=== PATIENT | female | born 1950 | race Caucasian/White ===

== ENCOUNTER → 2020-08-30 15:54 | Outpatient (CLI) | payer OTHER, SELFPAY ==
--- NOTE | 2020-08-30 15:58 | DI.MRI.S_ITS ---
BREAST MRI OF BOTH BREASTS- WITH CAD: 08/30/2020 CLINICAL: Breast MRI. No prior exams were available for comparison. Informed consent was obtained from the patient. 20 cc of gadolinium contrast was injected. Axial T1, T2, sagittal T1, and pre and post contrast T1 images were obtained with a dedicated breast coil. Post processing was performed including computer aided calculations of any tumor volumes and dimensions. There is mild background parenchymal enhancement. Right breast: No discrete mass or suspicious enhancement demonstrated within the right breast to suggest malignancy. Left breast: Within the upper inner quadrant of the left breast centered at the 10 o'clock position middle 3rd depth there is a lobulated enhancing mass with spiculated margins measuring up to 1.7 x 0.4 x 1.5 cm. There is an internal focus of magnetic susceptibility corresponding to the biopsy clip. Kinetic enhancement curves demonstrate internal areas of rapid initial enhancement with washout. There is a smaller adjacent small enhancing oval solid mass with spiculated margins 0.3 cm medial to the dominant mass. This measures approximately 0.7 x 0.7 x 1.1 cm in dimension. Kinetic enhancement curves demonstrate internal areas of moderate initial enhancement with washout. Elsewhere within the left breast, no additional mass lesions or abnormal enhancement demonstrated within the remaining quadrants to suggest multicentric disease. Miscellaneous: No definite axillary or internal mammary lymphadenopathy by size criteria. There are bilateral small subcentimeter level 1 axillary lymph nodes which are within normal size limits. No definite eccentric cortical thickening. The visualized liver redemonstrates a partially visualized oval T2 hyperintense mass lesion without internal enhancement likely representing a cyst but which is incompletely characterized on the current study. IMPRESSION: KNOWN BIOPSY PROVEN MALIGNANCY 1. Left upper inner quadrant mass demonstrated corresponding to patient's biopsy-proven malignancy. There is a smaller adjacent satellite mass also likely representing an additional focus of disease. No definite evidence of multicentric disease in the remaining quadrants. 2. No evidence of malignancy in the contralateral right breast. 3. No definite axillary or internal mammary lymphadenopathy by size criteria. 4. Partially visualized cystic lesion within the left hepatic lobe. Recommend follow-up abdominal imaging if clinically indicated. This exam was interpreted at Station ID: [id number]. Electronically Signed By: Brian Tellez M.D. ddp/:08/31/2020 10:16:47 copy to: REYES LEIVA ACR BI-RADS Category 6: Known biopsy proven malignancy 3346F
== END ==
PROVIDERS: PCP Specialist; Referring Provider Surgery; Visit Provider Surgery
DX: C50.212 Malignant neoplasm of upper-inner quadrant of left female breast (principal); Z17.1 Estrogen receptor negative status [ER-]; K76.9 Liver disease, unspecified
CPT/HCPCS: 77049; A9579

== ENCOUNTER → 2020-09-03 10:41 | Outpatient (CLI) | payer OTHER, SELFPAY ==
[2020-09-03 12:28] LABS: COVID19 -Nasal RAPID Negative (Negative)
== END ==
PROVIDERS: PCP Specialist; Visit Provider Surgery
DX: Z01.812 Encounter for preprocedural laboratory examination (principal); Z20.822 Contact with and (suspected) exposure to COVID-19
CPT/HCPCS: 87635; C9803

== ENCOUNTER 2020-09-05 07:03 | Day surgery (SDC) | payer OTHER, SELFPAY ==
[2020-09-05] VITALS (12 sets, daily range): BP systolic 130–151; BP diastolic 74–92; PULSE 69–115; RESP 9–16; TEMP 36.4–37; O2SAT 92–97; BMI 30.7
--- NOTE | 2020-09-05 | PATH_ITS ---
[facility] Accession Number: [id number] . 01 Material submitted: . PART A: breast - LEFT BREAST CANCER PART B: breast - LEFT BREAST CANCER DEEP MARGIN PART C: breast - LEFT BREAST CANCER MEDIAL MARGIN PART D: lymph node - LEFT AXILLARY SENTINEL NODE . 01 Clinical history: . SDC A: SHORT STITCH SUPERIOR, LONG STITCH LATERAL DOUBLE STITCH DEEP B: DOUBLE STITCH DEEP SIDE, SHORT STITCH SUPERIOR LONG STITCH LATERAL . 02 Diagnosis: A. Left Breast Cancer, Upper Inner Quadrant at 10 o'clock, Left Partial Mastectomy: . CANCER CASE SUMMARY: . Invasive carcinoma of the breast with the following features: . Procedure: Excision (partial mastectomy). Specimen laterality: Left. Tumor site: Upper inner quadrant. Tumor size: Greatest dimension of largest invasive focus: 17 mm per MRI report 08/30/20. Histologic type: Invasive carcinoma of no special type (ductal). Histologic grade: Glandular differentiation: Score 3 of 3. Nuclear pleomorphism: Score 3 of 3. Mitotic rate: Score 2 of 3. Overall grade: Grade 3/3 (high grade). Tumor focality: Single focus of invasive carcinoma (17 mm) with two immediately adjacent, small satellite nodules (5 mm and 3 mm). Ductal carcinoma in situ: Not identified. Margins: Uninvolved by invasive carcinoma. Distance from closest margin: 8 mm from the posterior margin; additional deep margin (part B) negative for invasive tumor. All other margins: Greater than 10 mm. Regional lymph nodes: Total number of lymph nodes examined: 1. Number of sentinel nodes examined: 1. Number of lymph nodes with macrometastasis: 0. Number of lymph nodes with micrometastasis: 0. Number of lymph nodes with isolated tumor cells: 0. Size of largest metastatic deposit: Not applicable. Extranodal extension: Not applicable. Treatment effect in breast: No known presurgical therapy. Treatment effect in lymph nodes: No known presurgical therapy. Lymphovascular invasion: Not identified. Dermal lymphovascular invasion: Not applicable. Pathologic stage classification (pTNM, August,): pT1c pN0(i-) Ancillary studies: Additional hormone studies pending on the excised specimen; results will be reported as an addendum. Performed on this patient's previous image-guided needle core biopsy and demonstrate the following by written report ([facility] [id number]; 08/09/2020): Estrogen receptor: Negative (0+, 0%, internal control stains appropriately). Progesterone receptor: Positive (2-3+, 10%). Ki-67: High proliferation index (75%). HER2: Negative (1+). E-cadherin: Positive. Microcalcifications: Present in non-neoplastic tissue. Additional Pathologic Findings: 5 mm satellite nodule posterolateral and 3 mm satellite nodule anteromedial; atypical ductal hyperplasia (3mm) within 1 mm of the lateral margin of tissue submitted as deep margin (please see part B); biopsy clip in slice 14; wire localization guidewire present at medial aspect of specimen; biopsy changes present. . B. Left Breast Cancer Deep Margin: Atypical epithelial proliferation obscured by electrocautery artifact, favor atypical ductal hyperplasia, present as a 3mm focus within 1 mm of the inked lateral margin; 5mm from the lateroinferior margin. Greater than 10 mm from all other apparent tissue margins. . C. Left Breast Cancer Medial Margin: Negative for tumor. . D. Left Axillary [place] Node: One lymph node negative for metastatic carcinoma by H/E stain and by immunohistochemistry studies (0/1). [facility] 09/11/2020 1514 Local . 02 Comment: Part A: The two satellite nodules are histologically identical to the main tumor. . Hormone receptor studies are requested on blocks A6 (5mm satellite nodule, posterolateral), A10 (main biopsied tumor), and A12 (3 mm satellite nodule, anteromedial). The negative ER result is noted from this patient's previous biopsy ( [id number]; 08/09/20). Results will be reported as an addendum. . 02 Electronically signed: . Leonila Cardoso MD, Pathologist NPI- [id number] . 01 Gross description: . . . . A. The specimen is received in formalin, labeled left breast and consists of a left lumpectomy specimen. Weight: 135 grams. Measurements: 9.5 cm from medial to lateral by 10.3 cm from superior to inferior by 4.2 cm from anterior to posterior. Skin Ellipse: Absent. Wire: Present, penetrating the medial aspect. Margins: The specimen is oriented with a short suture designated superior, a long suture designated lateral, and a double suture designated deep. The specimen is inked as follows: superior blue, inferior green, anterior red, posterior black, medial yellow, and lateral orange. Sliced: Lateral to medial into 19 slices. Lesions: There are two lesions identified. Lesion #1: Description: Firm round her mass measuring 0.9 x 0.7 x 0.7 cm within slices 10-12. Biopsy Site: Absent, with no clip identified. Distance To Margins: 1.2 cm from the posterior margin and greater than 2 cm from all remaining margins. Lesion #2: Description: Ill-defined red-brown hemorrhagic mass measuring 1.8 x 1.5 x 1.2 cm within slices 12-16. Biopsy Site: Present, with a coiled sliver metallic biopsy marker within slice 14. Distance To Margins: 0.5 cm from the posterior margin, 1.2 cm from the anterior margin, 1.0 cm from the medial margin, and greater than 2 cm from all remaining margins. Lesion #2 abuts lesion #1 in slice 12. Other: The remaining cut surfaces are composed of approximately 80% her-yellow lobulated adipose tissue and 20% her-white fibrous tissue. Preconstruction Manager sections are submitted: A1: slice 1, account development representative perpendicular sections of lateral margin. A2: slice 7, fibrotic area in relation to anterior margin. A3: slice 8, account development representative fibrotic area in relation to anterior margin. A4: slice 9, account development representative fibrotic area in relation to anterior margin. A5: slice 9, lateral to lesion #1 in relation to posterior margin. A6: slice 10, lesion #1 in relation to posterior margin. A7: slice 11, lesion #1 in relation to posterior margin. A8: slice 11, closest margin (anterior) in relation to lesion #1. A9: slice 12, lesion #1 in relation to lesion #2 and posterior margin. A10: slice 13, lesion #1 in relation to posterior margin. A11: slice 14, lesion #2 and site of biopsy marker in relation to posterior margin. A12: slice 14, lesion #2 in relation to anterior margin. A13-A14: slice 14, closest superior and inferior margins in relation to lesion #2. A15: slice 15, lesion #2 in relation to anterior margin. A16: slice 16, lesion #2 in relation to anterior margin. A17: slice 17, medial to lesion #2, to include anterior and posterior margins. A18: slice 18, anterior and posterior margins. A19: slice 19, account development representative perpendicular sections of medial margin. Formalin fixation time: Approximately 62 hours. (EA:[id number]) . B. The specimen is received in formalin, labeled left breast deep margin and consists of an 18-gram her-yellow fragment of fibroadipose tissue which is oriented with a double suture designated deep, a short suture designated superior, and a long suture designated lateral. The specimen measures 7.0 cm from medial to lateral by 6.0 cm from superior to inferior by 2.3 cm from anterior to posterior. The specimen is inked as follows: superior blue, inferior green, anterior red, posterior black, medial yellow and lateral orange. The specimen is serially sectioned from lateral to medial into 19 slices and entirely submitted. . B1: slice 1, lateral margin, perpendicularly sectioned. B2-B21: slices 2-18. B22-B23: slice 19, medial margin, perpendicularly sectioned. . C. The specimen is received in formalin, labeled left breast medial margin and consists of a 4.5 x 3.0 x 1.8 cm her-yellow fragment of fibroadipose tissue which is unoriented. One-half of the specimen is inked blue, the opposing half is inked black. The specimen is serially sectioned to reveal approximately 95% her-yellow lobulated adipose tissue and 5% her-white fibrous tissue. The specimen is entirely submitted. . C1: end, perpendicularly sectioned. C2-C13: central cross-sections. C14: opposing end, perpendicularly sectioned. . D. The specimen is received in formalin, labeled left axillary sentinel node and consists of a 2.2 x 2.0 x 1.5 cm her-yellow fragment of adipose tissue which is sectioned to reveal a 1.5 x 1.0 x 0.6 cm her-pink lymph node. The lymph node is bisected and entirely submitted in cassette D1. (EA:[id number]) /MRV 09/07/2020 1442 Local . 02 Microscopic: . P63 and smooth muscle myosin immunostains were performed on block B1. The control stain shows appropriate reactivity. . Part B: RESULT: One region of interest present on the immunohistochemistry slides for interpretation. . B. Myosin: Present in region of interest. P63: Present in region of interest. . These findings mitigate against the presence of invasive carcinoma at this focus. . D. An VANESSA immunostain is performed and is negative for metastatic carcinoma. . * This test was developed and its performance characteristics determined by [employer]. It has not been cleared or approved by the U.S. Food and Drug Administration. The FDA has determined that such clearance or approval is not necessary. This test is used for clinical purposes. It should not be regarded as investigational or for research. . 02 Pathologist provided ICD-10: C50.912 . 02 CPT . 728453, 907969, 078245, 628315, B12837, S84303, 819275, 889031, 985334 Performed at: 01 [facility] [address] [facility], [place], [place] [id number] MD Brian Chapa MD Phone: [phone] Performed at: 02 [facility] [place] [address] [place] [id number] MD Ruth Crawford MD Phone: [phone]
--- NOTE | 2020-09-05 | DI.MG.S_ITS ---
PROCEDURE: MM NEEDLE LOC LT2D COMPARISON: None. INDICATIONS: Left breast cancer. FINDINGS: IMPRESSION: Dictated by: Macy Brar MD, PhD on 09/05/2020 at 10:23 Approved by: Macy Brar MD, PhD on 09/05/2020 at 10:23
--- NOTE | 2020-09-05 | DI.MG.S_ITS ---
SPECIMEN LEFT BREAST: 09/05/2020 CLINICAL: Left breast cancer. Correlation is made to exams dated: 09/05/2020 [facility], 08/09/2020 mammogram, 07/05/2020 mammogram, and 08/09/2020 ultrasound biopsy - [facility]. A surgical specimen was imaged for the mass located in the left breast at 9 o'clock posterior depth. IMPRESSION: SPECIMEN The imaged specimen includes the mass, a biopsy clip, and the distal portion of the localization wire. This exam was interpreted at Station ID: [id number]. Lamine grady/elia:09/05/2020 12:04:44 copy to: REYES LEIVA
--- NOTE | 2020-09-05 07:52 | DI.NM.S_ITS ---
PROCEDURE: NM SENTINEL NODE W IMAGING RADIOPHARMACEUTICAL: 1.0 mCi Millipore filtered Tc-99m sulfur colloid. INDICATIONS: left breast cancer COMPARISON: None. TECHNIQUE: The area around the nipple was prepped and draped in a sterile fashion. Tc-99m sulfur colloid was injected intra-dermally in the outer edge of the areola in the left breast. Images were obtained subsequently. A body contour outline was obtained. FINDINGS: There is a single lymph node in the ipsilateral axilla, which is marked on the skin and the images for referring physician. IMPRESSION: Administration of radiotracer into the left breast periareolar region for intra-operative sentinel lymph node localization. Dictated by: Macy Brar MD, PhD on 09/05/2020 at 10:17 Approved by: aMcy Brar MD, PhD on 09/05/2020 at 10:19
--- NOTE | 2020-09-05 09:30 | DI.MG.S_ITS ---
Date: 09/05/2020 08:39 At the request of: THIERNO GIVENS Procedure: MM needle loc LT 2D MAMMOGRAPHY GUIDED WIRE LOCALIZATION LEFT BREAST WITH POST MAMMOGRAPHIC IMAGING- POST-NEEDLE BIOPSY: 09/05/2020 CLINICAL: Left breast cancer. Correlation is made to exams dated: 08/30/2020 breast MRI - [facility], 08/09/2020 ultrasound biopsy, 08/09/2020 mammogram, and 06/22/2020 mammogram - [facility]. A wire localization using mammography guidance was performed for the mass located in the left breast at 10 o'clock middle depth. The skin was prepped in the usual manner. Local anesthetic was administered to the access site. The localization was approached from the medial aspect. A Kopeans localization wire was inserted adjacent to the marker under mammography guidance. A sterile dressing was applied to the access site. Post placement mammographic imaging demonstrates the tip rests adjacent to the marker. IMPRESSION: WIRE LOCALIZATION Wire localization for the mass in the left breast at 10 o'clock middle depth was successful. This exam was interpreted at Station ID: [id number]. Macy henao/elia:09/05/2020 10:19:28 copy to: REYES LEIVA
[2020-09-05] MEDS: LACTATED RINGERS 1,000 ML 42 ML IV ×2 (10:04→11:56)
--- NOTE | 2020-09-05 10:22 | PM.PREOP ---
Pre-operative Note COVID-19 COVID-19 status: Negative Result date/Date tested (Pos, Neg/Pending): 09/03/20 Interval Note History & Physical reviewed/Exam performed by Physician: Yes Changes to H&P: Yes H&P completed within 30 days and has changed as indicated here:: Patient has had an MRI since her preop visit. We discussed this imaging study at length, and the fact that it shows a larger mass with at least 1 satellite lesion, with an aggregate size of approximately 2.7 cm. Explained that she has the option of having a port placed today and chemotherapy prior to lumpectomy, but the patient prefers to go ahead with a lumpectomy 1st. I explained to her that she has a higher risk of positive margin, and breast deformity because of the larger mass size and therefore larger excision. She verbalized understanding to this, and is in agreement with going ahead with the procedure today. We will plan on partial mastectomy and sentinel lymph node biopsy with wire localization and technetium 99 injection. Risks and benefits of bleeding, infection, damage to nearby structures, need for additional procedures, cancer recurrence, breast deformity, scarring, postoperative pain, positive margin, need for repeat surgery for additional margin were discussed. The patient desires to proceed with surgery.
[2020-09-05] MEDS: CEFAZOLIN 2 GM/100 ML FROZ.PIGGY IV (10:25)
--- NOTE | 2020-09-05 10:48 | SUR.OPER ---
Supine on padded OR bed, head on pillow, arms secured on padded arm boards at <90 degrees abduction, legs uncrossed, safety belt at thigh.
[2020-09-05] MEDS: BUPIVACAINE 0.5% W/ EPI (PF) 30 ML VIAL INJ (10:54)
[2020-09-05] MEDS: BUPIVACAINE LIPOSOME 266 MG/20 ML VIAL INJ (10:55)
--- NOTE | 2020-09-05 12:42 | P.OP_ITS ---
Operative Date/Time/Diagnoses Date of procedure: 09/05/20 Time of procedure: 12:42 Pre-op diagnosis: left breast cancer Post-op diagnosis: same Procedure & Clinicians Procedure: Left partial mastectomy Left axillary sentinel node biopsy x 1 Additional deep margin and left lateral margin Same procedure as scheduled: Yes Indications: This is a patient with biopsy proven left breast Infiltrating ductal carcinoma ER negative, NC weakly positive, Her2 negative. The primary mass is 1.7cm, but there are two additional satellite areas that make the lesion approximately 2.7cm in aggregate. Surgeon: Cece Griffin Anesthesia Type: General Operative Notes Findings: Left breast mass with wire, clip, and lesion in the specimen per post op mammography. [place] node count 726, with 31 count after removed Specimen(s): other (left breast mass, deep margin, left lateral margin, left axillary sentinel node) Estimated Blood Loss (mL): 10 Procedure in detail: The patient was brought into the OR and placed supine on the OR table. Sequential compression devices were placed on both legs and turned on. General anesthesia was induced and the patient was intubated by the anesthesiologist. Appropriate perioperative antibiotics were given. The left chest and axilla were prepped and draped in sterile fashion. Surgical time out was performed. Local anesthetic was infiltrated into the skin, and a 10cm curvilinear incision was made overlying the expected position of the mass based on the imaging, markings, and localization wire. Dissection was carried down through the subcutaneous fat to the avascular plane between the breast and subcutaneous tissue. Dissection was then carried laterally toward the localization wire. On ce the wire was reached at its entry point into the skin, the wire was clipped to the specimen and stabilized using two hemostats. The wire was then brought into the wound. Dissection was then carried circumferentially around the area of the mass based on the wire position and expected size of the mass per imaging. Once the entire specimen was dissected free, it was removed from the wound and placed on a sterile towel in anatomic position. It was then marked with a single short stitch superiorly, long double stitch deep, and single long stitch laterally, with the wire medial. Local anesthetic with 10mL of 0.5% Marcaine with epi was used to infiltrate the wound and skin. An additional deep margin and medial margin were taken. The deep margin was marked with double stitch deep and short single stitch superior, and long stitch lateral. The left medial margin was not marked. Flaps were created over the surrounding remaining breast tissue in order to recreate a breast mound centrally in the area of excision. A lap pad was packed into the wound and attention was turned to the axilla. After injection with local anesthetic a curvilinear incision was made in a skin crease of the axilla overlying the area with the greatest Neoprobe signal. Dissection was then carried down through the subcutaneous fat, and clavipectoral fascia, guided by the Neoprobe. One hot sentinel node was found, with counts of 726 in the lymph node after excision. Count in the axilla after removal was 31. The lymphatics and vessels going to the nodes were controlled with hemoclips. There was good hemostasis in the axilla at this point and additional local anesthetic was given in the breast wound and the axilla including a total of 30 mL of 0.5% Marcaine with epi for an appropriate weight based dose. Exparel was given for a total of 20mL in small aliquots around the breast and axillary wounds. Lap pad was removed from the breast wound. All lap pads and raytecs were then counted with a correct count. Then both were sites were closed with running 3-0 Vicryl, and subcuticular 4-0 Monocryl, and sealed with dermabond. The patient was then awakened from anesthesia and extubated. Needle sponge and instrument counts were correct x 2. A breast binder was placed on the patient with extra padding over the breast wound using 4x4 gauze. The patient was transferred to the PACU in stable condition. Complications: none Post-operative Condition: stable Disposition: PACU
[2020-09-05] MEDS: fentaNYL 100 MCG/2 ML INJ IV (13:09)
--- NOTE | 2020-09-05 13:13 | SUR.PHASEI ---
Pt arrived with patent airway, slow to wake up. Once more awake c/o pain in l breast medicated with fentanyl. O2 added weaned off then replaced after fentanyl given, no nausea tolerating ice chips.
[2020-09-05] MEDS: OXYCODONE/ACETAMINOPHEN 5/325 TABLET 1 TAB PO (13:22)
--- NOTE | 2020-09-05 13:34 | SUR.PHASEI ---
Pt medicated with percocet after tolerating applesauce.
--- NOTE | 2020-09-05 13:49 | SUR.PHASEI ---
Dr. Griffin to bedside- spoke with pt. To OPD stable.
[2020-09-05] MEDS: ONDANSETRON 4 MG/2 ML INJ IV (14:20)
== END 2020-09-05 15:15 | disposition home or self-care (01) ==
PROVIDERS: PCP Specialist; Referring Provider Specialist; Visit Provider Surgery
PROC: (CPT 38525; principal; 2020-09-05 10:45)
DX: C50.212 Malignant neoplasm of upper-inner quadrant of left female breast (principal); Z17.1 Estrogen receptor negative status [ER-]
CPT/HCPCS: 38525; 19125; 19281; 76098; 78195; A9541; C1819; C9290; J0690; J1100; J2405; J2704; J3010

== ENCOUNTER → 2020-10-11 14:44 | Outpatient (CLI) | payer OTHER, SELFPAY | PROVIDERS: Visit Provider Specialist | DX: R10.2 Pelvic and perineal pain (principal); R31.9 Hematuria, unspecified | CPT/HCPCS: 87086 ==

== ENCOUNTER → 2020-10-18 10:47 | Outpatient (CLI) | payer OTHER, SELFPAY ==
--- NOTE | 2020-10-18 10:51 | DI.NM.S_ITS ---
PROCEDURE: [facility] RADIOPHARMACEUTICAL: 26.1 mCi Tc-99m labeled autologous red cells IV. INDICATIONS: Pre pre-chemo TECHNIQUE: After intravenous administration of autologous labeled WBC, ROMANSH views of the chest were obtained. A region of interest was drawn around the left ventricle to calculate left ventricle ejection fraction. COMPARISON: None. FINDINGS: The heart and great vessels are of normal size and configuration. The left ventricle contracts normally, with left ventricle ejection fraction of 72.5%. Normal ejection fractions for this study are above 55%. A drop from baseline ejection fraction of greater than 10 percentage points or to below 45% on follow-up studies may be considered significant. IMPRESSION: Normal left ventricle ejection fraction at 72.5%. Dictated by: Joe Nguyen M.D. on 10/18/2020 at 11:49 Approved by: Joe Nguyen M.D. on 10/18/2020 at 11:52
== END ==
PROVIDERS: Referring Provider Internal Medicine Hematology & Oncology; Visit Provider Internal Medicine Hematology & Oncology
DX: Z01.810 Encounter for preprocedural cardiovascular examination (principal); C50.912 Malignant neoplasm of unspecified site of left female breast
CPT/HCPCS: 78472; A9512; A9538

== ENCOUNTER → 2020-10-19 11:43 | Outpatient (CLI) | payer OTHER, SELFPAY ==
[2020-10-19 12:35] LABS: COVID19 -Nasal RAPID Negative (Negative)
== END ==
PROVIDERS: Visit Provider Surgery
DX: Z20.822 Contact with and (suspected) exposure to COVID-19 (principal)
CPT/HCPCS: 87635; C9803

== ENCOUNTER 2020-10-22 08:15 | Day surgery (SDC) | payer OTHER, SELFPAY ==
[2020-10-22] VITALS (9 sets, daily range): BP systolic 119–144; BP diastolic 71–81; PULSE 71–85; RESP 10–16; TEMP 36.1–36.9; O2SAT 93–97; BMI 29.9
--- NOTE | 2020-10-22 | DI.RAD.S_ITS ---
PROCEDURE: XR CHEST 1V INDICATIONS: in pacu post port placement, port position, rule out pthx TECHNIQUE: One view of the chest was acquired. COMPARISON: None. FINDINGS: Surgical changes and devices: Right chest Port-A-Cath, tip projects to SVC right atrial junction, left axillary clips Lungs and pleura: Lungs are clear. No pleural effusions or pneumothorax. Mediastinum: Mediastinal contours appear normal. Mild cardiomegaly. Bones and chest wall: No suspicious bony lesions. Overlying soft tissues appear unremarkable. IMPRESSION: 1. Satisfactory Port-A-Cath placement. 2. Mild cardiomegaly. Dictated by: Manuelito Greenfield M.D. on 10/22/2020 at 11:09 Approved by: Manuelito Greenfield M.D. on 10/22/2020 at 11:10
--- NOTE | 2020-10-22 08:27 | PM.HP.1 ---
History of Present Illness History of Present Illness Date Patient Seen: 10/22/20 Time Patient Seen: 08:27 Chief complaint: SDC Narrative: This is a 69 yo woman who is six weeks post op from left partial mastectomy and SLNBx. She is here for portacath placement. She has had an adequate surgical resection and a good cosmetic outcome. She doesn't need any further margin or repeat surgery at this time other than port placement. I had a long discussion with the patient regarding her pathology, and her visit with Dr. Longoria. I strongly recommended to her that she take advantage of all offered treatment modalities. She will need a portacath placed today, prior to starting chemo. We discussed the risks and benefits of port placement, as well as the details of surgery her prior office visit. ROS: Thirteen system review is otherwise negative other than as mentioned below and in HPI. PE: GENERAL: Well groomed and cooperative. Appears stated age. Answers questions promptly and appropriately. Vital signs noted. HENT: Normocephalic, atraumatic. Hearing intact. EYES: Conjunctiva pink, sclera white, no periorbital swelling. CARDIOVASCULAR: Regular rate. No pedal edema. RESPIRATORY: Non-tachypneic, breathing comfortably on room air. GASTROINTESTINAL: Abdomen soft and non-distended GENITALURINARY: No flank tenderness. MUSCULOSKELETAL: Equal tone and mass bilaterally. SKIN: Warm, dry, soft, appropriate color for ethnicity. No other lesions, rashes, or wounds. NEURO: Alert and Oriented X 3. No gross sensory deficits, or cognitive issues. PSYCH: Appropriate affect and mood. Patient History Medical History Acne (~1967) Atrophic vaginitis Basal cell carcinoma Chicken pox (~1959) Fibroids (~1994) Fractures (~1972) Hiatal hernia (~2019) History of pneumonia History of recurrent UTIs Hypothyroidism Measles (~1958) Mumps (~1958) Postmenopausal Seasonal allergies (~1987) Shoulder pain (~2012) Skin cancer (~2013) Surgical History Anesthesia History of (~03/1983) History of endoscopy History of hysterectomy (~1997) History of knee surgery (~03/2014) History of rhinoplasty History of shoulder surgery (~08/2013) Status post myomectomy (~06/1998) Family & Social History Family History Father Heart disease Brother Diabetes mellitus Stroke Brother Cancer Grandfather Heart disease Grandmother Heart disease Stroke Mother Diabetes mellitus Grandfather Heart disease Stroke Grandmother Heart disease Stroke Social History: household members significant other Tobacco & Substance use: Smoking Status Never smoker alcohol intake current alcohol intake frequency a few times a month Substance Use Type does not use Meds Home Medications and Allergies Home Medications Medication Instructions Recorded Confirmed Type cholecalciferol (vitamin D3) 125 15,000 unit PO DAILY cap 04/29/19 10/11/20 History mcg (5,000 unit) capsule thyroid (pork) 120 mg tablet 120 mg PO DAILY 04/29/19 10/11/20 History bone customer support coordinator calcium 1 tab PO DAILY 08/02/20 10/11/20 History red yeast rice 600 mg capsule 600 mg PO DAILY 08/02/20 10/11/20 History thyrosol 1 tab PO DAILY 08/02/20 10/11/20 History Allergies Allergy/AdvReac Type Severity Reaction Status Date / Time propoxyphene [From Darvon] Allergy Mild Vomiting, Verified 09/18/20 14:09 hives Assessment & Plan Assessment and plan (1) S/P partial mastectomy: Qualifiers: Laterality: left Qualified Code(s): Z90.12 - Acquired absence of left breast and nipple Status: Acute (2) Breast cancer, left: Qualifiers: Breast location: upper inner quadrant of breast Estrogen receptor status: negative Patient sex: female Qualified Code(s): C50.212 - Malignant neoplasm of upper-inner quadrant of left female breast; Z17.1 - Estrogen receptor negative status [ER-] Status: Acute (3) Estrogen receptor negative tumor status (ER-): Status: Acute (4) 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 Here for Port-A-Cath placement. Risks of bleeding, infection, damage to lung and vascular structures, need for additional procedures, port clotting, infection, malposition, need for port revision or replacement were discussed. The patient desires to proceed with portacath placement. Plan: Proceed to OR for Port-A-Cath placement
[2020-10-22] MEDS: ACETAMINOPHEN 325 MG TABLET 975 MG PO (08:49)
[2020-10-22] MEDS: LACTATED RINGERS 1,000 ML 100 ML IV (08:49)
[2020-10-22] MEDS: SCOPOLAMINE 1 PATCH TOP (08:49)
--- NOTE | 2020-10-22 09:28 | P.OP_ITS ---
Operative Date/Time/Diagnoses Date of procedure: 10/22/20 Time of procedure: 09:29 Pre-op diagnosis: left breast cancer, scheduled to start chemotherapy Post-op diagnosis: same Procedure & Clinicians Procedure: Portacath placement, right IJ with US and fluoroscopy guidance Same procedure as scheduled: Yes Indications: left breast cancer, scheduled to start chemotherapy Surgeon: Cece Griffin Click Yes if Unassisted: Yes Anesthesia Type: General Operative Notes Findings: Wide patulus right IJ, good position of port on fluoro and post op CXR; good draw back and flush with Samuel needle at the end of the procedure. Specimen(s): none sent Prosthetic devices, grafts, tissues, transplants, or devices: [employer] slim powerport Estimated Blood Loss (mL): 20 Procedure in detail: Patient was placed supine on the operating room table and underwent general LMA anesthesia. A roll was placed between her shoulders. The neck and chest were prepped and draped in the usual sterile fashion. The patient was positioned in Trendelenburg, and local anesthetic was infiltrated beneath the skin overlying the right IJ. The right neck was examined with ultrasound, and an appropriate position on the internal jugular vein was identified. The right IJ was accessed with a large-bore needle and syringe using simultaneous ultrasound guidance. Dark blood returned indicating venous access, and the guidewire was passed through the needle. Fluoroscopy was used to identify the position of the guidewire. The wire was looped on itself within a very wide and patulous IJ and SVC. I retracted the wire and advanced it again under fluoro guidance. It passed smoothly into the appropriate position without looping. A 3 cm transverse incision was then made in the skin on the right chest wall and a 2 cm x 2 cm pocket was created inferior to the incision. The port was put together and flushed with heparinized saline. It was positioned in the pocket, and the tunneler was used to tunnel the catheter up to the jugular vein. A skin incision was made over top of the guide wire, and the dilator and introducer sheath were passed over the wire using fluoro guidance. The wire and dilator were then removed and the sheath was left in place. The catheter was cut to the appropriate length after evaluating its length using fluoro with the catheter position on the patient's chest. Once it was tapered to appropriate length the catheter was passed through the introducer and then the sheath was peeled away. Again using fluoro guidance, the catheter tip appeared to be in good position within the superior vena cava at the cavoatrial junction. The port was fixed to the chest wall using 3 0 silk suture. The skin was closed with 3 0 Vicryl and 4 0 Monocryl, and the skin incisions were sealed with Dermabond. The Port-A-Cath was accessed through the skin using a Samuel needle and was found to flush well and draw back blood easily. It was then flushed with 5cc of heparinized saline. This concluded the procedure and the patient was awakened from anesthesia and t ransferred to the postanesthesia care unit in stable condition. Needle sponge and instrument counts were correct x2 at the end of the case. The patient tolerated the procedure well and was transferred to the PACU in stable condition. In the PACU of follow-up chest x-ray was done which showed no pneumothorax and good positioning of the catheter. Complications: none Post-operative Condition: stable Disposition: PACU
[2020-10-22] MEDS: CEFAZOLIN 2 GM/100 ML FROZ.PIGGY IV (09:32)
--- NOTE | 2020-10-22 09:50 | PM.PROC.1 ---
Procedures Nerve Block Time out performed: Yes Nerve blocks: brachial plexus (intrascalene) Procedure successful: Yes Patient tolerated procedure: well and no complications Additional comments: Intrascalene block performed for post-op pain control at surgeon request. Patient was positioned with IV, O2, monitors and rescue meds available. Prepped and timeout performed. Target identified with continuous ultrasound guidance. mL of bupivicaine 0.5% was injected perineurally with intermittent aspiration and injection.
--- NOTE | 2020-10-22 09:52 | SUR.OPER ---
Supine on padded OR bed, head on gel doughnut, towel roll between shoulder blades, arms padded and tucked at sides, legs uncrossed, pillow x 1 under knees, safety belt at thigh, tape over blanket over lower legs .
[2020-10-22] MEDS: HEPARIN 5,000 UNIT, SODIUM CHLORIDE 0.9% 50 ML IV (10:00)
[2020-10-22] MEDS: BUPIVACAINE 0.25% W/ EPI (PF) 10 ML VIAL 20 ML INJ (10:01)
== END 2020-10-22 12:10 | disposition home or self-care (01) ==
PROVIDERS: PCP Student in an Organized Health Care Education/Training Program; Referring Provider Surgery; Visit Provider Surgery
PROC: (CPT 36561; principal; 2020-10-22 09:15)
DX: C50.212 Malignant neoplasm of upper-inner quadrant of left female breast (principal); Z17.1 Estrogen receptor negative status [ER-]; Z90.12 Acquired absence of left breast and nipple; K21.9 Gastro-esophageal reflux disease without esophagitis; E66.9 Obesity, unspecified; Z68.30 Body mass index [BMI] 30.0-30.9, adult; E03.9 Hypothyroidism, unspecified
CPT/HCPCS: 36561; 71045; 82962; C1788; J0690; J1100; J1644; J1885; J2250; J2405; J2704

== ENCOUNTER → 2021-07-24 09:54 | Outpatient (CLI) | payer MEDICARE, SELFPAY ==
[2021-07-24 10:47] LABS: COVID19 -Nasal RAPID Negative (Negative)
== END ==
PROVIDERS: PCP Student in an Organized Health Care Education/Training Program; Visit Provider Nurse Practitioner Family
DX: Z20.822 Contact with and (suspected) exposure to COVID-19 (principal); R30.0 Dysuria
CPT/HCPCS: 87086; 87635

== ENCOUNTER → 2021-10-01 15:33 | Outpatient (ROUT) | payer MEDICARE, BC, SELFPAY | PROVIDERS: PCP Student in an Organized Health Care Education/Training Program; Visit Provider Ophthalmology | DX: H16.291 Other keratoconjunctivitis, right eye (principal) | CPT/HCPCS: 87070; 87205; 87252 ==

== ENCOUNTER → 2021-10-04 10:33 | Outpatient (CLI) | payer MEDICARE, BC, SELFPAY ==
--- NOTE | 2021-10-04 10:36 | DI.NM.S_ITS ---
PROCEDURE: [place] BONE SCAN WHOLE BODY RADIOPHARMACEUTICAL: 20.1 mCi Tc-99m MDP IV. INDICATIONS: r/o bone metastasis TECHNIQUE: Delayed whole-body scintigrams were obtained approximately 3-4 hours after intravenous injection of radiotracer. Anterior and posterior views were acquired from vertex to feet. Additional left and right oblique views of the ribs were obtained. COMPARISON: [facility], CT, CT ABREU, 05/06/2021, 11:20. FINDINGS: Physiologic uptake is noted within the kidneys and bladder. There is increased uptake within the anterior 9th right rib. Focal uptake is also noted within the L4 vertebral body. Punctate areas of uptake are noted within the shoulder girdles, knees as well as small bones of the feet. Increased uptake is noted at the right 1st MCP joint. IMPRESSION: Increased uptake within the right 9th rib nonspecific. While this could represent metastatic disease, traumatic uptake cannot be excluded. Rib series x-ray is recommended for further evaluation. Uptake at the level of L4 is indeterminate. This could be client relations representative of degenerative change although metastatic disease cannot be excluded. Further evaluation with lumbar spine x-rays or MRI is recommended. Focal areas of uptake within the shoulders, knees, feet and 1st MCP joint most suggestive of arthritis. Dictated by: Ashley Ho M.D. on 10/04/2021 at 16:29 Approved by: Ashley Ho M.D. on 10/04/2021 at 16:31
== END ==
PROVIDERS: PCP Student in an Organized Health Care Education/Training Program; Referring Provider Internal Medicine Hematology & Oncology; Visit Provider Internal Medicine Hematology & Oncology
DX: C50.212 Malignant neoplasm of upper-inner quadrant of left female breast (principal); Z17.1 Estrogen receptor negative status [ER-]
CPT/HCPCS: 78306; A9503

== ENCOUNTER → 2021-10-17 09:36 | Outpatient (CLI) | payer MEDICARE, BC, SELFPAY ==
--- NOTE | 2021-10-17 | DI.MRI.S_ITS ---
PROCEDURE: MR PELVIS WO CON INDICATIONS: Sacrococcygeal disorders, not elsewhere classified TECHNIQUE: Noncontrast axial and oblique coronal T1 spin echo and STIR through the sacroiliac joints. COMPARISON: None. FINDINGS: Image quality: Excellent. Bones: Mild bilateral sacroiliac joint osteoarthritic changes are seen with joint space narrowing and subchondral sclerosis. No adjacent bone marrow edema to suggest active sacroiliitis. No bony ankylosis. No suspicious marrow space occupying lesions. Degenerative disc disease in visualized lower lumbar spine is seen most prominent involving L3-4 level incompletely evaluated on this pelvic study. Soft tissues: No presacral masses. Rectum appears normal in caliber and wall thickness. No pathologic free pelvic fluid. IMPRESSION: 1. No marrow edema. No fracture or dislocation. No suspicious intraosseous lesion in bony pelvis is seen to suggest bony metastasis. 2. Bilateral sacroiliac joint osteoarthritis. No bony erosion or ankylosis is seen. 3. No gross presacral soft tissue abnormality. 4. Degenerative disc disease in visualized lower lumbar spine more prominent at L3-4 level. Dictated by: Fred Lou M.D. on 10/17/2021 at 15:37 Approved by: Fred Lou M.D. on 10/17/2021 at 15:40
== END ==
PROVIDERS: PCP Student in an Organized Health Care Education/Training Program; Referring Provider Internal Medicine Hematology & Oncology; Visit Provider Internal Medicine Hematology & Oncology
DX: M53.3 Sacrococcygeal disorders, not elsewhere classified (principal); C50.212 Malignant neoplasm of upper-inner quadrant of left female breast; M46.1 Sacroiliitis, not elsewhere classified; M51.36 Other intervertebral disc degeneration, lumbar region; Z17.1 Estrogen receptor negative status [ER-]
CPT/HCPCS: 72195

== ENCOUNTER → 2022-05-15 12:48 | Outpatient (CLI) | payer MEDICARE, BC, SELFPAY ==
--- NOTE | 2022-05-15 12:52 | DI.NM.S_ITS ---
PROCEDURE: [place] BONE SCAN WHOLE BODY RADIOPHARMACEUTICAL: 20.8 mCi Tc-99m MDP IV. INDICATIONS: lower back pain TECHNIQUE: Delayed whole-body scintigrams were obtained approximately 3-4 hours after intravenous injection of radiotracer. Anterior and posterior views were acquired from vertex to feet. Additional left and right oblique views of the ribs and pelvis were obtained. COMPARISON: [facility], MR, MR LUMBAR SPINE WITHOUT CONTRAST, 12/20/2021, 7:37. [facility], [place], NM BONE SCAN WHOLE BODY, 10/04/2021, 14:00. FINDINGS: No abnormal uptake of radiotracer is seen within the bones of the calvarium or bones of the face. No abnormal radiotracer uptake is seen within the cervical spine or the thoracic spine. Within the lumbar spine on the right at the L3-L4 level, there is again seen an abnormal focus of increased uptake seen. Along the right anterolateral seventh rib, there is a focus of abnormally increased uptake seen, which is similar to the prior examination. No abnormal uptake of radiotracer is seen within the sternum. A mild degree of symmetric uptake is seen within the region of the shoulders, which is attributed to degenerative change and is not considered to be pathologic. No abnormal uptake is seen within the upper extremities. No abnormal uptake is seen within the pelvis or within the lower extremities. No abnormal soft tissue uptake is seen. The kidneys demonstrate normal positions. IMPRESSION: Stable abnormal foci can be seen within a right rib as well as within the right L3-L4 level. These are similar to the prior examination. The right rib uptake remains suspicious for bony metastatic disease. On the interval lumbar spine examination on 12/20/2021, no elba findings of metastatic disease can be seen, and the bone scan fissure is likely related to focal right-sided disc degeneration at the L3-L4 level. Dictated by: Alejandro Calzada M.D. on 05/15/2022 at 16:12 Approved by: Alejandro Calzada M.D. on 05/15/2022 at 16:16
== END ==
PROVIDERS: PCP Student in an Organized Health Care Education/Training Program; Referring Provider Internal Medicine Hematology & Oncology; Visit Provider Internal Medicine Hematology & Oncology
DX: C50.212 Malignant neoplasm of upper-inner quadrant of left female breast (principal); M54.50 Low back pain, unspecified; Z17.1 Estrogen receptor negative status [ER-]
CPT/HCPCS: 78306; A9503

== ENCOUNTER → 2023-02-16 14:00 | Outpatient (CLI) | payer MEDICARE, BC, SELFPAY ==
--- NOTE | 2023-02-16 14:24 | DI.RAD.S_ITS ---
PROCEDURE: XR CHEST 2V INDICATIONS: Cough TECHNIQUE: 2 views of the chest were acquired. COMPARISON: [facility], CR, XR CHEST 1V, 10/22/2020, 10:41. FINDINGS: Surgical changes and devices: Right chest port present with tip of the catheter projecting near the superior cavoatrial junction. Left axillary metal clips. Lungs and pleura: Streaky opacities present at the right lung base. No pleural effusions or pneumothorax. Mediastinum: Mediastinal contours are normal. Heart size is normal. Bones and chest wall: No suspicious bony abnormalities. Soft tissues appear unremarkable. IMPRESSION: Right basilar opacities are present which may represent atelectasis and/or scarring, but pneumonia and/or aspiration are difficult to fully exclude. Dictated by: Lamine Hudson M.D. on 02/16/2023 at 16:22 Approved by: Lamine Hudson M.D. on 02/16/2023 at 16:26
[2023-02-16 15:11] LABS: Influenza A - CEPHEID Flu A NEGATIVE (NEGATIVE); Influenza B - CEPHEID Flu B NEGATIVE (NEGATIVE); Respiratory Syncytial Virus Negative (Negative)
[2023-02-16 15:13] LABS: COVID-19 CEPHEID 4-PLEX PCR Negative (Negative)
== END ==
PROVIDERS: PCP Student in an Organized Health Care Education/Training Program; Referring Provider Nurse Practitioner Family; Visit Provider Nurse Practitioner Family
DX: J02.9 Acute pharyngitis, unspecified (principal); J06.9 Acute upper respiratory infection, unspecified; R05.9 Cough, unspecified
CPT/HCPCS: 0241U; 71046; 87070; 87880; C9803

== ENCOUNTER 2024-05-03 11:02 | Day surgery (SDC) | payer MEDICARE, BC, SELFPAY ==
[2024-03-30 10:41] VITALS: BMI 26.9
--- NOTE | 2024-05-03 | DI.RAD.S_ITS ---
PROCEDURE: XR CHEST 1V INDICATIONS: POST PORT REMOVAL TECHNIQUE: One view of the chest was acquired. COMPARISON: [facility], CR, XR CHEST 2V, 02/16/2023, 14:21. FINDINGS: Heart, mediastinum and pulmonary vascular: Heart is normal in size and configuration. Mediastinum is unremarkable. Pulmonary vascular is normal. Port-A-Cath has been removed. Lungs: Clear Pleural spaces: Normal-no effusions or pneumothorax. Bones and soft tissues: Distal right clavicle is absent likely related to old trauma. No change IMPRESSION: Normal chest. Dictated by: Emir Guajardo M.D. on 05/04/2024 at 10:43 Approved by: Emir Guajardo M.D. on 05/04/2024 at 10:43
--- NOTE | 2024-05-03 11:15 | PM.HP.1 ---
History of Present Illness History of Present Illness Date Patient Seen: 05/03/24 Time Patient Seen: 11:15 Chief complaint: [facility] Narrative: Joslyn is a 73-year-old woman who presents for port removal. Her port was placed by Dr. Randall in 2020 for breast cancer. She sees Dr. Sommer for cancer surveillance. He has told her she does not need her port anymore and she would like to have removed. [facility] Medical History (Updated 05/03/24 @ 11:23 by Andrew Soto MD) Basal cell carcinoma Hypothyroidism Hiatal hernia (~2019) History of pneumonia History of recurrent UTIs Postmenopausal Atrophic vaginitis Seasonal allergies (~1987) Shoulder pain (~2012) Fractures (~1972) Acne (~1967) Mumps (~1958) Measles (~1958) Chicken pox (~1959) Fibroids (~1994) Skin cancer (~2013) Surgical History History of rhinoplasty History of endoscopy Anesthesia History of (~03/1983) History of knee surgery (~03/2014) History of shoulder surgery (~08/2013) History of hysterectomy (~1997) Status post myomectomy (~06/1998) Family History Father Heart disease Brother Diabetes mellitus Stroke Brother Cancer Grandfather Heart disease Grandmother Heart disease Stroke Mother Diabetes mellitus Grandfather Heart disease Stroke Grandmother Heart disease Stroke Social History household members: significant other Smoking Status: Never smoker alcohol intake: current substance use type: does not use Meds Home Medications and Allergies Home Medications Medication Instructions Recorded Confirmed Type cholecalciferol (vitamin D3) 125 5,000 unit PO DAILY 04/29/19 04/14/24 History mcg (5,000 unit) capsule thyroid (pork) 120 mg tablet 120 mg PO DAILY 04/29/19 04/14/24 History ([place] Thyroid) red yeast rice 600 mg capsule 600 mg PO DAILY 08/02/20 04/14/24 History thyrosol 1 tab PO DAILY 08/02/20 04/14/24 History vitamin B complex 1 cap DAILY 10/25/20 04/14/24 History Bone Up Calcium 1 tab DAILY 11/08/20 04/14/24 History turmeric 400 mg capsule mg PO 02/06/22 04/14/24 History naproxen sodium 220 mg capsule 220 mg PO BID PRN Pain (Scale 07/10/22 04/14/24 History ([place]) Score 4-6) magnesium glycinate 100 mg (as 100 mg PO DAILY 04/14/24 04/14/24 History glycinate) tablet omeprazole 40 mg capsule,delayed 40 mg PO BID 04/14/24 05/03/24 History release thyroid (pork) 120 mg tablet 120 mg PO DAILY 05/03/24 05/03/24 History ([place] Thyroid) Allergies Allergy/AdvReac Type Severity Reaction Status Date / Time propoxyphene [From Darvon] Allergy Mild Vomiting, Verified 05/03/24 11:19 hives Exam Narrative Exam Narrative: There is a infusion port in the right pectoral region which appears to be tunneled towards the right neck in the region of the right jugular vein Assessment & Plan Assessment and plan (1) History of breast cancer: Status: Acute Plan We discussed the risks and benefits of port removal in the operating room and she would like to proceed. Time-Based Coding :: [TOTAL MINUTES] spent with patient and on the chart (including review of chart, obtaining history, exam, reviewing outside data, placing orders, documenting exam and treatment plan, and counseling patient) on [DATE].
[2024-05-03 11:20] VITALS: BMI 26.9
[2024-05-03] MEDS: CEFAZOLIN 2 GM/100 ML PREMIX 100 ML IV (11:50)
--- NOTE | 2024-05-03 11:52 | SUR.OPER ---
Supine on padded OR bed, head on pillow, arms padded and tucked at sides, legs uncrossed, safety belt at thigh, tape over blanket over lower legs .
[2024-05-03] MEDS: LIDOCAINE 1% W/EPI 1 ML SUBCUT (11:56)
[2024-05-03] MEDS: BUPIVACAINE 0.5% W/ EPI (PF) 30 ML VIAL 10 ML INJ (12:03)
--- NOTE | 2024-05-03 12:10 | PM.OP.1 ---
Operative Date/Time/Diagnoses Date of procedure: 05/03/24 Time of procedure: 12:11 Pre-op diagnosis: Infusion catheter no longer needed Post-op diagnosis: same Procedure & Clinicians Procedure: Removal of chemotherapy infusion port Same procedure as scheduled: Yes Surgeon: Andrew Soto Senior Architect: Demian Alicea Anesthesia Type: MAC +/- Operative Notes Procedure in detail: The patient is a 73-year-old woman who has an old chemotherapy infusion port that is no longer needed. She consented to removal of her infusion port. The patient was brought to the operating room, placed on the table in the supine position and monitored anesthesia was induced. Clindamycin was administered. The right chest and neck were prepped and draped in the usual fashion. A time-out was performed. After injecting lidocaine over the device a 3 cm incision was created through the old scar. Dissection was carried down to the capsule port which was opened sharply with a scalpel. The fibrous attachments were divided until the port and catheter were freely mobile. Light pressure was applied over the right neck and the catheter was easily removed without resistance. We then injected some additional Marcaine into the wound. We closed the wound with multiple interrupted 3-0 Vicryl sutures and a running 4-0 Monocryl subcuticular stitch. EBL: 10 mL Demian CELAYA provided assistance with exposure, retraction and closure of incisions. Post-operative Condition: stable Disposition: PACU
[2024-05-03 12:17] VITALS: BP 120/75; PULSE 79; RESP 15; TEMP 37; O2SAT 96
[2024-05-03 12:22] VITALS: BP 122/78; PULSE 79; RESP 19; TEMP 36.9; O2SAT 96
[2024-05-03 12:28] VITALS: BP 131/79; PULSE 70; RESP 15; O2SAT 96
[2024-05-03 12:34] VITALS: BP 118/76; PULSE 72; RESP 18; TEMP 36.6; O2SAT 99
== END 2024-05-03 13:19 | disposition home or self-care (01) ==
PROVIDERS: PCP Student in an Organized Health Care Education/Training Program; Referring Provider Surgery; Visit Provider Surgery
PROC: (CPT 36590; principal; 2024-05-03 12:30)
DX: Z45.2 Encounter for adjustment and management of vascular access device (principal); Z85.3 Personal history of malignant neoplasm of breast; E03.9 Hypothyroidism, unspecified
CPT/HCPCS: 36590; 71045; J0690; J2704

== ENCOUNTER → 2024-10-23 15:40 | Outpatient (CLI) | payer MEDICARE, BC, SELFPAY ==
[2024-10-23 16:46] LABS: Influenza A - CEPHEID Flu A POSITIVE (NEGATIVE); Influenza B - CEPHEID Flu B NEGATIVE (NEGATIVE); Respiratory Syncytial Virus Negative (Negative)
[2024-10-23 16:49] LABS: COVID-19 CEPHEID 4-PLEX PCR Negative (Negative)
== END ==
PROVIDERS: PCP Family Medicine; Visit Provider Registered Nurse
DX: J02.9 Acute pharyngitis, unspecified (principal)
CPT/HCPCS: 0241U

== ENCOUNTER → 2024-11-21 09:09 | Outpatient (CLI) | payer MEDICARE, BC, SELFPAY ==
[2024-11-21 10:26] LABS: Add Manual Diff / Slide Review NO; Basophils Absolute Auto 0 /uL (0-100); Basophils Percent Auto 0.3 % (0-2); Eosinophils Absolute Auto 100 /uL (0-450); Eosinophils Percent Auto 2.1 % (2-4); Hematocrit 38.8 % (36-46); Lymphocytes Absolute Auto 1700 /uL (1100-4500); Lymphocytes Percent Auto 38.7 % (25-40); Mean Corpuscular HGB Conc 33.6 % (30-36); Mean Corpuscular Hemoglobin 30.2 PG (26-34); Monocytes Absolute Auto 400 /uL (0-900); Monocytes Percent Auto 9.6 % (3-14); Neutrophils Absolute Auto 2200 /uL (1500-7000); Neutrophils Percent Auto 49.3 % (50-75); Platelet Count 228 X10^3/uL (150-400); Red Blood Cell Count 4.31 X10^6/uL (4.0-5.2); Red Cell Distribution Width 13.4 % (11.6-14.8); White Blood Cell Count 4.4 X10^3/uL (4.5-11.0)
[2024-11-21 10:53] LABS: Alanine Aminotransferase 17 IU/L (<35); Albumin 4.4 g/dL (3.5-5.0); Albumin Globulin Ratio 1.6 (1.0-2.8); Alkaline Phosphatase 68 U/L (38-126); Aspartate Aminotransferase 23 IU/L (14-36); BUN Creatinine Ratio 28.1 (6-22); Blood Urea Nitrogen 18 mg/dL (7-17); Calcium 9.1 mg/dL (8.4-10.2); Carbon Dioxide 25 mmol/L (22-32); Chloride 105 mmol/L (98-107); Cholesterol 213 mg/dL (140-199); Estimated Glomerular Filt Rate > 60 mL/min (>60); Globulin 2.7 g/dL (1.7-4.1); Glucose 104 mg/dL (70-99); HDL Cholesterol 61 mg/dL (40-60); HEMOLYSIS < 15 (0-50); LDL Cholesterol Calculated 139 mg/dL (<100); Potassium 4.4 mmol/L (3.4-5.1); Sodium 138 mmol/L (137-145); Total Protein 7.1 g/dL (6.3-8.2); Triglycerides 64 mg/dL (35-150)
[2024-11-21 11:01] LABS: Vitamin D 25 Hydroxy (D3) 47.5 ng/mL (30.0-100.0)
[2024-11-21 11:17] LABS: Thyroid Stimulating Hormone < 0.015 uIU/mL (0.47-4.68)
== END ==
PROVIDERS: PCP Family Medicine; Referring Provider Family Medicine; Visit Provider Family Medicine
DX: E55.9 Vitamin D deficiency, unspecified (principal); E78.5 Hyperlipidemia, unspecified; E03.9 Hypothyroidism, unspecified
CPT/HCPCS: 36415; 80053; 80061; 82306; 84436; 84443; 85025

== ENCOUNTER → 2025-01-12 14:21 | Outpatient (CLI) | payer MEDICARE, BC, SELFPAY ==
[2025-01-12 14:57] LABS: Add Manual Diff / Slide Review NO; Basophils Absolute Auto 0 /uL (0-100); Basophils Percent Auto 0.5 % (0-2); Eosinophils Absolute Auto 100 /uL (0-450); Eosinophils Percent Auto 2.1 % (2-4); Hematocrit 39.6 % (36-46); Hemoglobin 13.6 g/dL (12.0-16.0); Lymphocytes Absolute Auto 2200 /uL (1100-4500); Lymphocytes Percent Auto 42.8 % (25-40); Mean Corpuscular HGB Conc 34.3 % (30-36); Mean Corpuscular Hemoglobin 30.7 PG (26-34); Mean Corpuscular Volume 89.5 fL (80-100); Monocytes Absolute Auto 400 /uL (0-900); Monocytes Percent Auto 7.7 % (3-14); Neutrophils Absolute Auto 2400 /uL (1500-7000); Neutrophils Percent Auto 46.9 % (50-75); Platelet Count 203 X10^3/uL (150-400); Red Blood Cell Count 4.43 X10^6/uL (4.0-5.2); Red Cell Distribution Width 14.1 % (11.6-14.8); White Blood Cell Count 5.2 X10^3/uL (4.5-11.0)
[2025-01-12 15:30] LABS: Cholesterol 266 mg/dL (140-199); HDL Cholesterol 80 mg/dL (40-60); LDL Cholesterol Calculated 164 mg/dL (<100); Triglycerides 108 mg/dL (35-150)
[2025-01-12 15:42] LABS: Vitamin D 25 Hydroxy (D3) 48.8 ng/mL (30.0-100.0)
[2025-01-12 15:45] LABS: Free T4, Direct Thyroxine 0.68 ng/dL (0.78-2.19); T4 Total Thyroxine 5.47 ug/dL (5.5-11.0)
== END ==
PROVIDERS: PCP Family Medicine; Referring Provider Family Medicine; Visit Provider Family Medicine
DX: E03.9 Hypothyroidism, unspecified (principal); E55.9 Vitamin D deficiency, unspecified; E78.5 Hyperlipidemia, unspecified; D72.9 Disorder of white blood cells, unspecified
CPT/HCPCS: 36415; 80061; 82306; 84436; 84439; 84443; 84481; 85025

== ENCOUNTER → 2025-04-04 12:12 | Outpatient (CLI) | payer MEDICARE, BC, SELFPAY ==
[2025-04-04 13:40] LABS: Cholesterol 234 mg/dL (140-199); HDL Cholesterol 85 mg/dL (40-60); Triglycerides 91 mg/dL (35-150)
[2025-04-04 14:12] LABS: TSH w/ Reflex to FT4 0.86 uIU/mL (0.47-4.68)
== END ==
PROVIDERS: PCP Family Medicine; Referring Provider Family Medicine; Visit Provider Family Medicine
DX: E78.5 Hyperlipidemia, unspecified (principal); E55.9 Vitamin D deficiency, unspecified; E03.9 Hypothyroidism, unspecified
CPT/HCPCS: 36415; 80061; 84443

== ENCOUNTER → 2025-04-06 11:06 | Outpatient (CLI) | payer MEDICARE, BC, SELFPAY ==
[2025-04-06 11:54] LABS: Cholesterol 229 mg/dL (140-199); HDL Cholesterol 86 mg/dL (40-60); Triglycerides 108 mg/dL (35-150)
[2025-04-06 13:02] LABS: Folate 18.0 ng/mL (2.76-20.0); Vitamin B12 835 pg/mL (239-931)
[2025-04-11 13:38] LABS: SS A Ro Sjogrens Antibody < 0.2 AI (0.0-0.9); SS B La Sjogrens Antibody < 0.2 AI (0.0-0.9)
[2025-04-12 01:08] LABS: Vitamin B2, Whole Blood 202 ug/L (137-370)
[2025-04-12 13:12] LABS: ANA Screen, IFA Negative (.)
== END ==
PROVIDERS: PCP Family Medicine; Referring Provider Family Medicine; Visit Provider Family Medicine
DX: E78.5 Hyperlipidemia, unspecified (principal); G47.9 Sleep disorder, unspecified; E03.9 Hypothyroidism, unspecified; E55.9 Vitamin D deficiency, unspecified; R53.83 Other fatigue
CPT/HCPCS: 36415; 80061; 82607; 82746; 84630; 86038; 86235

== ENCOUNTER → 2025-07-08 13:54 | Outpatient (CLI) | payer MEDICARE, BC, SELFPAY ==
--- NOTE | 2025-07-08 13:57 | DI.RAD.S_ITS ---
PROCEDURE: XR HAND LT MIN 3V INDICATIONS: Severe left thumb pain TECHNIQUE: 3 views of the hand(s) acquired. COMPARISON: None. FINDINGS: Bones: No fractures or dislocations. [id number] left hand and wrist joint osteoarthritic changes are seen most notably involving 1st CMC joint. Carpal bones are normally aligned. No suspicious bony lesions. Soft tissues: No suspicious soft tissue calcifications. IMPRESSION: No acute left hand fracture or dislocation. [id number] left hand and wrist joint osteoarthritis as above. Dictated by: Fred Lou M.D. on 07/08/2025 at 14:43 Approved by: Fred Lou M.D. on 07/08/2025 at 14:44
== END ==
PROVIDERS: PCP Family Medicine; Referring Provider Family Medicine; Visit Provider Chiropractor
DX: L03.012 Cellulitis of left finger (principal); M18.12 Unilateral primary osteoarthritis of first carpometacarpal joint, left hand; M19.032 Primary osteoarthritis, left wrist
CPT/HCPCS: 73130

== ENCOUNTER → 2025-07-10 11:56 | Outpatient (CLI) | payer MEDICARE, BC, SELFPAY ==
[2025-07-10 13:47] LABS: Uric Acid 4.5 mg/dL (2.5-6.2)
== END ==
PROVIDERS: PCP Family Medicine; Referring Provider Family Medicine; Visit Provider Family Medicine
DX: L03.90 Cellulitis, unspecified (principal); M25.569 Pain in unspecified knee
CPT/HCPCS: 36415; 84550